=== PATIENT | male | born 1970 | race Caucasian/White ===

== ENCOUNTER 2021-06-03 13:22 | Inpatient (IN) | payer BC ==
[~2021-06-03] VITALS: Ht 175.3 cm; Wt 83.7 kg
[2021-06-03] MEDS ORDERED: SODIUM CHLORIDE FLUSH 10ML SYR IVF ONE (13:30)
[2021-06-03] MEDS ORDERED: SODIUM CHLORIDE 0.9% 1,000ML IVBOLUS ONE (13:30)
[2021-06-03] MEDS ORDERED: SODIUM CHLORIDE 0.9% 1,000 ML IV ONE (13:30)
--- NOTE | 2021-06-03 13:41 | NUR ---
BIB EMS TRANSFER FROM [facility], INCREASSING SOB OVER PAST FEW DAYS. +COVID TEST AT [facility] TODAY. DR TORRES AT BEDSIDE, ALL MONITORS PLACED AND EKG COMPLETED. PT ASSESSMENT AND POC DISCUSSED AND QUESTIONS ANSWERED. VSS, NAD NOTED. CALL LIGHT W/I REACH
[2021-06-03] MEDS ORDERED: PLEASE ENTER HEIGHT AND WEIGHT AND ALLERGIES MC SCH (14:00)
[2021-06-03 14:10] LABS: MEAN CORPUSCULAR HEMOGLOBIN 31.5 pg (27.5-34.5); MEAN CORPUSCULAR HGB CONC 34.1 g/dL (33.2-36.2); MEAN PLATELET VOLUME 8.1 fL (7.4-10.4); PLATELET COUNT 105 x10^3/uL (130-400); RED BLOOD COUNT 4.74 x10^6/uL (4.38-5.82); RED CELL DISTRIBUTION WIDTH 14.2 % (9.4-14.8)
[2021-06-03 14:20] LABS: ALBUMIN 3.5 g/dL (3.4-5.0); ANION GAP 19 mmol/L (5-15); CHLORIDE 106 mmol/L (98-107); CREATININE 1.01 mg/dL (0.7-1.3)
[2021-06-03] MEDS ORDERED: POLYETHYLENE GLYCOL 17 GM PACKET PO PRN (14:30)
[2021-06-03] MEDS ORDERED: ENALAPRILAT 1.25 MG/ML, 2ML IVPush PRN (14:30)
[2021-06-03] MEDS ORDERED: LORazepam 1MG TABLET PO PRN ×3 (14:30→17:30)
[2021-06-03] MEDS ORDERED: ONDANSETRON 2MG/ML, 2ML IVPush PRN (14:30)
[2021-06-03] MEDS ORDERED: GUAIFENESIN/DM 200-20MG, 10ML UDC PO PRN (14:30)
[2021-06-03] MEDS ORDERED: GUAIFENESIN/COD200MG-20MG/10ML LIQUID PO PRN (14:30)
--- NOTE | 2021-06-03 14:47 | NUR ---
SP02 FALLS TO 88% WHEN PT RESTING. 02 2L NC PLACED WITH EFFECT.
[2021-06-03 14:48] LABS: BAND#(MANUAL) 0.39 x10^3/uL; BANDS%(MANUAL) 14 % (0-7); LYMPH#(MANUAL) 0.17 x10^3/uL (1-3.4); LYMPHS% (MANUAL) 6 % (22-44)
[2021-06-03 14:49] LABS: MONOS#(MANUAL) 0.03 x10^3/uL (0.3-2.7); MONOS% (MANUAL) 1 % (2-9); SEG#(MANUAL) 2.21 x10^3/uL (1.8-6.8); SEGS% (MANUAL) 79 % (42-75)
[2021-06-03 14:50] LABS: <PLATELET ESTIMATE> DECREASED; <PLT MORPHOLOGY> NORMAL PLT MORPH; <RBC MORPHOLOGY> NORMAL
[2021-06-03] MEDS ORDERED: ASCORBIC ACID 500 MG TABLET ONE (14:55)
[2021-06-03] MEDS ORDERED: CHOLECALCIFEROL 5,000u TAB ONE (14:55)
[2021-06-03] MEDS ORDERED: POTASSIUM CHLORIDE 20 MEQ TAB.ER.PRT ONE (14:56)
[2021-06-03] MEDS ORDERED: POTASSIUM CHLORIDE 20 MEQ TAB.ER.PRT PO ONE (15:00)
[2021-06-03 15:34] LABS: C-REACTIVE PROTEIN, QUANT 0.31 mg/dL (0.02-0.49)
[2021-06-03 16:00] LABS: D-DIMER 0.48 ug/mlFEU (0.00-0.52)
[2021-06-03] MEDS: CEFTRIAXONE 2 GM in DEXTROSE 5% 50 ML IVPB SCH (16:05)
[2021-06-03] MEDS: CHOLECALCIFEROL 5,000u TAB PO SCH (16:08)
--- NOTE | 2021-06-03 16:11 | NUR ---
PT MED NOTED. MEAL TRAY SET UP. PT WITH +TREMMORS OF HANDS, NOW ADMITS TO THIS RN THATHE DRINKS "SEVERAL HARD DRINKS A DAY" LAST DRINK WAS "LATE LAST NIGHT AND IT WAS A STRONG ONE" MD UPDATED.
[2021-06-03 16:14] LABS: HCT (SEDRATE) 43.8 % (39.2-51.8)
[2021-06-03] MEDS ORDERED: LORazepam 2 MG/ML, 1ML ONE (16:30)
[2021-06-03] MEDS ORDERED: LORazepam 2 MG/ML, 1ML IVPush ONE (16:30)
--- NOTE | 2021-06-03 16:34 | NUR ---
PT MED NOTED FOR TREMMORS
--- NOTE | 2021-06-03 16:41 | NUR ---
[facility] RPT TO GARY GUAMAN. NEED FOR CIWA PROTOCOL DISCUSSED AND ROWENA WILL UPDATE PROVIDER.
[2021-06-03] MEDS ORDERED: ASCORBIC ACID 250 MG TAB PO SCH (17:00)
[2021-06-03 17:27] VITALS: BP 144/88
[2021-06-03] MEDS ORDERED: LORazepam 2 MG/ML, 1ML IV PRN ×4 (17:30)
[2021-06-03] MEDS ORDERED: LORazepam 0.5MG TABLET PO PRN (17:30)
[2021-06-03] MEDS ORDERED: ONDANSETRON 2MG/ML, 2ML IV PRN (17:30)
[2021-06-03] MEDS: ENOXAPARIN 40 MG/0.4 ML SQ SCH (18:31)
[2021-06-03] MEDS: POTASSIUM CHLORIDE 20 MEQ, MAGNESIUM SULFATE 1 GM, THIAMINE 200 MG, FOLIC ACID 1 MG, MV... IV SCH (18:31)
[2021-06-03 19:43] VITALS: BP 132/84
[2021-06-03] MEDS ORDERED: DOXYCYCLINE 100MG TABLET PO ONE (21:00)
[2021-06-04 01:49] VITALS: BP 131/82
[2021-06-04 05:30] LABS: BASOPHILS % (AUTO) 0 % (0-1); EOSINOPHILS % (AUTO) 0 % (1-7); LYMPHOCYTES % (AUTO) 22 % (22-44); MEAN CORPUSCULAR HEMOGLOBIN 31.3 pg (27.5-34.5); MEAN CORPUSCULAR HGB CONC 34.5 g/dL (33.2-36.2); MEAN PLATELET VOLUME 8.1 fL (7.4-10.4); MONOCYTES % (AUTO) 5 % (2-9); NEUTROPHILS % (AUTO) 73 % (42-75); PLATELET COUNT 102 x10^3/uL (130-400); RED BLOOD COUNT 4.64 x10^6/uL (4.38-5.82)
[2021-06-04 05:57] LABS: ALBUMIN 3.3 g/dL (3.4-5.0); ANION GAP 4 mmol/L (5-15); CALCIUM 7.7 mg/dL (8.5-10.1); CHLORIDE 108 mmol/L (98-107)
[2021-06-04 06:03] LABS: ALANINE AMINOTRANSFERASE 215 U/L (12-78); ALKALINE PHOSPHATASE 155 U/L (45-117); BILIRUBIN,TOTAL 1.2 mg/dL (0.2-1.0); CREATININE 0.77 mg/dL (0.7-1.3); TOTAL PROTEIN 6.9 g/dL (6.4-8.2)
[2021-06-04 08:24] VITALS: BP 132/85
[2021-06-04] MEDS ORDERED: DEXAMETHASONE 4 MG/ML, 1ML IVPush SCH (09:00)
[2021-06-04] MEDS: AMLODIPINE 5 MG TABLET PO SCH (10:05)
[2021-06-04] MEDS: THIAMINE 100MG TABLET PO SCH (10:05)
[2021-06-04] MEDS: CHOLECALCIFEROL 5,000u TAB PO SCH (10:05)
[2021-06-04] MEDS: ZINC SULFATE 220 MG CAPSULE PO SCH (10:05)
[2021-06-04] MEDS: ASCORBIC ACID 500 MG TABLET PO SCH ×2 (10:06→18:17)
[2021-06-04 12:34] VITALS: BP 127/82
[2021-06-04] MEDS: CEFTRIAXONE 2 GM in DEXTROSE 5% 50 ML IVPB SCH (15:34)
[2021-06-04] MEDS ORDERED: AMLO-150 PO (16:33)
[2021-06-04] MEDS ORDERED: HYDR12.575 PO (16:33)
[2021-06-04] MEDS: ENOXAPARIN 40 MG/0.4 ML SQ SCH (18:17)
[2021-06-04 19:35] VITALS: BP 127/66
[2021-06-04] MEDS: POTASSIUM CHLORIDE 20 MEQ, MAGNESIUM SULFATE 1 GM, THIAMINE 200 MG, FOLIC ACID 1 MG, MV... IV SCH (20:53)
[2021-06-04 21:21] LABS: CLOSTRIDIUM DIFFICILE ANTIGEN NEGATIVE; CLOSTRIDIUM DIFFICILE TOXIN NEGATIVE (Negative)
[2021-06-05 00:48] VITALS: BP 134/72
[2021-06-05 05:03] LABS: BASOPHILS % (AUTO) 0 % (0-1); EOSINOPHILS % (AUTO) 0 % (1-7); LYMPHOCYTES % (AUTO) 23 % (22-44); MEAN CORPUSCULAR HEMOGLOBIN 31.8 pg (27.5-34.5); MEAN CORPUSCULAR HGB CONC 34.9 g/dL (33.2-36.2); MEAN PLATELET VOLUME 8.9 fL (7.4-10.4); MONOCYTES % (AUTO) 4 % (2-9); NEUTROPHILS % (AUTO) 73 % (42-75); PLATELET COUNT 100 x10^3/uL (130-400); RED BLOOD COUNT 5.08 x10^6/uL (4.38-5.82); RED CELL DISTRIBUTION WIDTH 13.7 % (9.4-14.8)
[2021-06-05 05:17] LABS: ALANINE AMINOTRANSFERASE 249 U/L (12-78); ALBUMIN 3.2 g/dL (3.4-5.0); ALKALINE PHOSPHATASE 154 U/L (45-117); ANION GAP 10 mmol/L (5-15); BILIRUBIN,TOTAL 0.9 mg/dL (0.2-1.0); CALCIUM 7.6 mg/dL (8.5-10.1); CHLORIDE 106 mmol/L (98-107); CREATININE 0.66 mg/dL (0.7-1.3); TOTAL PROTEIN 7.2 g/dL (6.4-8.2)
[2021-06-05 08:25] VITALS: BP 127/82
[2021-06-05] MEDS: THIAMINE 100MG TABLET PO SCH (09:26)
[2021-06-05] MEDS: ZINC SULFATE 220 MG CAPSULE PO SCH (09:27)
[2021-06-05] MEDS: ASCORBIC ACID 500 MG TABLET PO SCH (09:27)
[2021-06-05] MEDS: AMLODIPINE 5 MG TABLET PO SCH (09:27)
[2021-06-05] MEDS: CHOLECALCIFEROL 5,000u TAB PO SCH (09:27)
[2021-06-05 12:31] VITALS: BP 132/80
== END 2021-06-05 15:39 | disposition left against medical advice (07) | DRG 177 ==
LOC: ED 13:35 → SUATTDRO 13:56 → EDIP 14:21 → 4WST 17:04
PROVIDERS: ADMIT Hospitalist; ATTEND Internal Medicine
DX: U07.1 COVID-19 (principal); J96.01 Acute respiratory failure with hypoxia; E87.2 Acidosis; F10.239 Alcohol dependence with withdrawal, unspecified; R17 Unspecified jaundice; Z53.29 Procedure and treatment not carried out because of patient's decision for other reasons; I10 Essential (primary) hypertension; M48.061 Spinal stenosis, lumbar region without neurogenic claudication; E87.6 Hypokalemia; E78.2 Mixed hyperlipidemia; F32.9 Major depressive disorder, single episode, unspecified; F43.10 Post-traumatic stress disorder, unspecified; F10.229 Alcohol dependence with intoxication, unspecified; R74.01 Elevation of levels of liver transaminase levels; R91.8 Other nonspecific abnormal finding of lung field; Z79.899 Other long term (current) drug therapy; Z91.018 Allergy to other foods; Z91.048 Other nonmedicinal substance allergy status
CPT/HCPCS: 36415; 71045; 76700; 80048; 80053; 82040; 82728; 83605; 83615; 85025; 85379; 85384; 85651; 86140; 86704; 86706; 86708; 86803; 87040; 87324; 87340; 93005; 96360; 96361; G0378; J0696; J1100; J1650; J3411; J3475; J3480; J2060; J7030